=== PATIENT | female | born 1975 | race Caucasian/White ===

== ENCOUNTER → 2017-03-12 | Outpatient (CLI) | payer BC | LOC: KOH-I 14:30 | DX: R10.9 Unspecified abdominal pain (principal); N20.0 Calculus of kidney | CPT/HCPCS: 76775 ==

== ENCOUNTER 2017-03-22 11:07 | Emergency (ER) | payer BC ==
[2017-03-22 11:47] LABS: HEMOGLOBIN 13.4 gm/dl (12.3-15.3); RED BLOOD COUNT 4.75 M/UL (4.00-5.10); WHITE BLOOD COUNT 10.3 K/UL (4.5-11.0)
[2017-03-22 12:07] LABS: BUN/CREATININE RATIO 18 (0-10)
== END 2017-03-22 14:50 | disposition home or self-care (01) ==
LOC: ER1 11:07
PROVIDERS: Emergency Medicine
DX: N39.0 Urinary tract infection, site not specified (principal); R31.9 Hematuria, unspecified; Z90.49 Acquired absence of other specified parts of digestive tract
CPT/HCPCS: 36415; 80053; 81001; 82150; 83690; 84703; 85025; 96374; 96375; 99284; J0696; J1885; J2270; J2405; J7030; J7050